=== PATIENT | female | born 1990 | race Caucasian/White ===

== ENCOUNTER 2021-12-22 19:11 | Emergency (ER) | payer MEDICAID, OTHER ==
[2021-12-22] MEDS ORDERED: Sodium Chloride 0.9% 10 ML Syringe FLUSH PRN (19:41)
[2021-12-22] MEDS ORDERED: Ketorolac 30 MG/ML SDV IVPUSH ONE (20:23)
[2021-12-22] MEDS ORDERED: diphenhydrAMINE 50 MG/ML SDV IVPUSH ONE (20:23)
[2021-12-22] MEDS ORDERED: Metoclopramide 10 MG/2 ML SDV IVPUSH ONE (20:23)
[2021-12-22] MEDS ORDERED: Orphenadrine 100 MG Tab.ER PO ONE (20:56)
== END 2021-12-22 21:55 ==
LOC: JD.ED 19:11
DX: R51.9 Headache, unspecified (principal); M43.6 Torticollis; R56.9 Unspecified convulsions; Z88.0 Allergy status to penicillin
CPT/HCPCS: 36415; 70450; 72125; 80053; 80306; 81001; 83735; 85025; 86140; 96374; 96375; 99285; A9270; J1200; J1885; J2765

== ENCOUNTER 2021-12-25 14:15 | Emergency (ER) | payer MEDICAID, OTHER ==
[2021-12-25] MEDS ORDERED: Sodium Chloride 0.9% 10 ML Syringe FLUSH PRN (14:44)
[2021-12-25] MEDS ORDERED: levETIRAcetam 1,000 MG in Sodium Chloride 0.9% 100 ML IV ONE (14:45)
[2021-12-25] MEDS ORDERED: Acetaminophen 325 MG Tab PO ONE (15:07)
[2021-12-25] MEDS ORDERED: Ondansetron 4 MG/2 ML SDV IVPUSH ONE (15:28)
== END 2021-12-25 16:20 ==
LOC: JD.ED 14:15
DX: R56.9 Unspecified convulsions (principal); Z88.0 Allergy status to penicillin; Z86.16 Personal history of COVID-19; Z87.891 Personal history of nicotine dependence
CPT/HCPCS: 36415; 80053; 83735; 85025; 96365; 96375; 99284; A9270; J1953; J2405

== ENCOUNTER 2024-07-10 00:03 | Emergency (ER) | payer MEDICAID, OTHER ==
[2024-07-10] MEDS: HYDROmorphone 1 MG/ML Syringe IVPUSH ONE (01:04)
[2024-07-10] MEDS: Metoclopramide 10 MG/2 ML SDV IVPUSH ONE (01:07)
[2024-07-10] MEDS: diphenhydrAMINE 50 MG/ML SDV IVPUSH ONE (01:08)
[2024-07-10] MEDS: Dextrose 5%-0.9% NaCl 1,000 ML IV SCH (01:11)
[2024-07-10 01:18] LABS: BASOPHILS ABSOLUTE AUTO 0.1 K/mm3 (0.0-0.2); BASOPHILS PERCENT AUTO 0.7 % (0.0-1.0); EOSINOPHILS ABSOLUTE AUTO 0.1 K/mm3 (0.0-0.4); EOSINOPHILS PERCENT AUTO 1.3 % (0.0-6.0); HEMATOCRIT 39.7 % (37.0-47.0); HEMOGLOBIN 13.3 gm/dl (12.0-16.0); LYMPHOCYTES ABSOLUTE AUTO 3.1 K/mm3 (1.0-4.8); LYMPHOCYTES PERCENT AUTO 45.4 % (24.0-44.0); MEAN CORPUSCULAR HEMOGLOBIN 29.1 pg (28.0-32.0); MEAN CORPUSCULAR HGB CONC 33.5 g/dl (32.0-36.0); MEAN CORPUSCULAR VOLUME 86.9 fl (83.0-99.0); MEAN PLATELET VOLUME 9.7 fl (9.4-12.3); MONOCYTES ABSOLUTE AUTO 0.6 K/mm3 (0.0-0.8); MONOCYTES PERCENT AUTO 8.4 % (0.0-8.0); NEUTROPHILS ABSOLUTE AUTO 3.1 K/mm3 (1.8-7.7); NEUTROPHILS PERCENT AUTO 44.2 % (41.0-71.0); PLATELET COUNT,PLT 314 K/mm3 (150-400); RED BLOOD CELL COUNT 4.57 M/mm3 (4.10-5.30); WHITE BLOOD CELL COUNT,WBC 6.92 K/mm3 (3.9-11.3)
[2024-07-10] MEDS: Iopamidol 612 MG/ML 100 ML Bottle IVPUSH ONE (01:20)
[2024-07-10 01:36] LABS: APPEARANCE,URINE CLEAR (Clear); BILIRUBIN,URINE NEGATIVE (Negative); COLOR,URINE YELLOW (Yellow); GLUCOSE,URINE NEGATIVE (Negative); KETONES,URINE NEGATIVE (Negative); LEUKOCYTE ESTERASE,URINE NEGATIVE (Negative); NITRITE,URINE NEGATIVE (Negative); OCCULT BLOOD,URINE 1+ (Negative); PH,URINE 6.5 (5.0-8.0); PROTEIN,URINE NEGATIVE (Negative); UROBILINOGEN,URINE 0.2 (0.2-1.0)
[2024-07-10 01:43] LABS: A/G RATIO 1.2 (1-2); ALBUMIN 3.7 g/dl (3.4-5.0); ANION GAP 11.3 (5-15); BILIRUBIN TOTAL 0.3 mg/dL (0.2-1.0); BUN/CREATININE RATIO 8.6 (14-18); C-REACTIVE PROTEIN 0.12 mg/dL (<0.30); CALCIUM 8.7 mg/dL (8.5-10.1); CREATININE 0.7 mg/dL (0.55-1.02); EST CRCL DRUG DOSING (CG) 102.33 mL/min; MAGNESIUM 1.9 mg/dL (1.8-2.4); POTASSIUM,K 3.3 mEq/L (3.5-5.1); PROTEIN TOTAL,TP 6.7 g/dl (6.4-8.2)
[2024-07-10 01:45] LABS: BACTERIA,URINE FEW /hpf (FEW); RBC,URINE 0-5 /hpf (0-5); WBC,URINE 0-5 /hpf (0-5)
[2024-07-10 01:46] LABS: MUCUS,URINE MODERATE /hpf (FEW)
[2024-07-10 01:51] LABS: LACTIC ACID 0.4 mmol/L (0.4-2.0)
[2024-07-10] MEDS: HYDROmorphone 0.5 MG/0.5 ML Syringe IVPUSH ONE (03:12)
[2024-07-10] MEDS: Ketorolac 30 MG/ML SDV IVPUSH ONE (03:12)
== END 2024-07-10 04:09 | disposition home or self-care (01) ==
LOC: JD.ED 00:03
DX: R10.84 Generalized abdominal pain (principal); R11.2 Nausea with vomiting, unspecified; F17.210 Nicotine dependence, cigarettes, uncomplicated; Z88.0 Allergy status to penicillin; Z91.040 Latex allergy status; Z79.899 Other long term (current) drug therapy; Z86.16 Personal history of COVID-19
CPT/HCPCS: 36415; 74177; 76830; 80053; 81001; 83605; 83690; 83735; 84703; 85025; 86140; 96361; 96374; 96375; 96376; 99284; J1171; J1200; J1885; J2765; J7042; Q9967

== ENCOUNTER 2024-09-17 17:52 | Emergency (ER) | payer MEDICAID ==
[2024-09-17] MEDS: Ondansetron 4 MG/2 ML SDV IVPUSH ONE (19:09)
[2024-09-17] MEDS: Sodium Chloride 0.9% 10 ML Syringe FLUSH PRN (19:09)
[2024-09-17] MEDS: Lactated Ringers 1,000 ML IV ONE (19:09)
[2024-09-17 19:22] LABS: APPEARANCE,URINE SLT CLOUDY (Clear); BILIRUBIN,URINE NEGATIVE (Negative); COLOR,URINE YELLOW (Yellow); GLUCOSE,URINE NEGATIVE (Negative); KETONES,URINE NEGATIVE (Negative); LEUKOCYTE ESTERASE,URINE NEGATIVE (Negative); NITRITE,URINE POSITIVE (Negative); OCCULT BLOOD,URINE NEGATIVE (Negative); PROTEIN,URINE NEGATIVE (Negative); UROBILINOGEN,URINE 0.2 (0.2-1.0)
[2024-09-17 19:28] LABS: BACTERIA,URINE MANY /hpf (FEW); MUCUS,URINE FEW /hpf (FEW); RBC,URINE 0-5 /hpf (0-5)
[2024-09-17 19:31] LABS: BASOPHILS PERCENT AUTO 0.5 % (0.0-1.0); EOSINOPHILS ABSOLUTE AUTO 0.1 K/mm3 (0.0-0.4); EOSINOPHILS PERCENT AUTO 1.8 % (0.0-6.0); HEMATOCRIT 39.2 % (37.0-47.0); HEMOGLOBIN 12.8 gm/dl (12.0-16.0); IMMATURE GRAN ABSOLUTE AUTO 0.01 K/mm3 (0.00-0.05); IMMATURE GRAN PERCENT AUTO 0.2 % (0.0-0.4); LYMPHOCYTES ABSOLUTE AUTO 2.5 K/mm3 (1.0-4.8); LYMPHOCYTES PERCENT AUTO 41.4 % (24.0-44.0); MEAN CORPUSCULAR HEMOGLOBIN 29.9 pg (28.0-32.0); MEAN CORPUSCULAR HGB CONC 32.7 g/dl (32.0-36.0); MEAN CORPUSCULAR VOLUME 91.6 fl (83.0-99.0); MONOCYTES ABSOLUTE AUTO 0.4 K/mm3 (0.0-0.8); MONOCYTES PERCENT AUTO 6.5 % (0.0-8.0); NEUTROPHILS PERCENT AUTO 49.6 % (41.0-71.0); PLATELET COUNT,PLT 224 K/mm3 (150-400); RED BLOOD CELL COUNT 4.28 M/mm3 (4.10-5.30); WHITE BLOOD CELL COUNT,WBC 6.11 K/mm3 (3.9-11.3)
[2024-09-17] MEDS: Dicyclomine 10 MG Cap PO ONE (19:50)
[2024-09-17 20:08] LABS: A/G RATIO 1.2 (1-2); ALBUMIN 3.2 g/dl (3.4-5.0); ANION GAP 11.1 (5-15); BILIRUBIN TOTAL 0.3 mg/dL (0.2-1.0); BUN/CREATININE RATIO 13.8 (14-18); CALCIUM 8.3 mg/dL (8.5-10.1); CREATININE 0.8 mg/dL (0.55-1.02); EST CRCL DRUG DOSING (CG) 85.11 mL/min; POTASSIUM,K 4.1 mEq/L (3.5-5.1); PROTEIN TOTAL,TP 5.9 g/dl (6.4-8.2)
[2024-09-17] MEDS: Ketorolac 30 MG/ML SDV IVPUSH ONE (20:31)
[2024-09-17] MEDS: Phenazopyridine 95 MG Tab PO SCH (20:36)
[2024-09-17] MEDS: Clindamycin HCl 150 MG Cap PO ONE (21:53)
[2024-09-17] MEDS: Sulfamethoxazole/Trimethoprim 800-160 MG Tab PO SCH (21:54)
[2024-09-18] MEDS ORDERED: Phenazopyridine 95 MG Tab PO SCH (09:00)
== END 2024-09-17 22:01 | disposition home or self-care (01) ==
LOC: JD.ED 17:52
DX: N30.00 Acute cystitis without hematuria (principal); K04.7 Periapical abscess without sinus; F17.210 Nicotine dependence, cigarettes, uncomplicated; Z79.899 Other long term (current) drug therapy; Z88.0 Allergy status to penicillin; Z91.040 Latex allergy status
CPT/HCPCS: 36415; 80053; 81001; 81025; 83605; 83690; 85025; 87086; 96374; 96375; 99284; A9270; J1885; J2405; J7120; 99283

== ENCOUNTER 2025-06-10 18:06 | Emergency (ER) | payer MEDICAID ==
[2025-06-10] MEDS: Ondansetron 4 MG/2 ML SDV IVPUSH ONE (18:49)
[2025-06-10 18:50] LABS: BASOPHILS ABSOLUTE AUTO 0.0 K/mm3 (0.0-0.2); BASOPHILS PERCENT AUTO 0.4 % (0.0-1.0); EOSINOPHILS ABSOLUTE AUTO 0.1 K/mm3 (0.0-0.4); EOSINOPHILS PERCENT AUTO 1.5 % (0.0-6.0); IMMATURE GRAN ABSOLUTE AUTO 0.04 K/mm3 (0.00-0.05); IMMATURE GRAN PERCENT AUTO 0.4 % (0.0-0.4); LYMPHOCYTES ABSOLUTE AUTO 3.5 K/mm3 (1.0-4.8); LYMPHOCYTES PERCENT AUTO 35.9 % (24.0-44.0); MEAN PLATELET VOLUME 10.2 fl (9.4-12.3); MONOCYTES ABSOLUTE AUTO 0.6 K/mm3 (0.0-0.8); MONOCYTES PERCENT AUTO 6.3 % (0.0-8.0); NEUTROPHILS ABSOLUTE AUTO 5.4 K/mm3 (1.8-7.7); NEUTROPHILS PERCENT AUTO 55.5 % (41.0-71.0); NRBC ABSOLUTE 0.00 (0.00-0.02); NRBC PERCENT 0.0 % (0.0-0.2); PLATELET COUNT,PLT 324 K/mm3 (150-400); RED BLOOD CELL COUNT 4.86 M/mm3 (4.10-5.30); WHITE BLOOD CELL COUNT,WBC 9.64 K/mm3 (3.9-11.3)
[2025-06-10 18:52] LABS: APPEARANCE,URINE CLEAR (Clear); GLUCOSE,URINE NEGATIVE (Negative); OCCULT BLOOD,URINE NEGATIVE (Negative)
[2025-06-10] MEDS: Sodium Chloride 0.9% 10 ML Syringe FLUSH ONE (18:55)
[2025-06-10] MEDS: Iopamidol 612 MG/ML 100 ML Bottle IVPUSH ONE (18:55)
[2025-06-10 19:00] LABS: EPITHELIAL CELLS,URINE 0-5 /hpf (0-5)
[2025-06-10 19:24] LABS: A/G RATIO 1.2 (1-2); ALANINE AMINOTRANSFERASE,ALT 22.0 U/L (14-59); ASPARTATE AMNIOTRANSFERASE,AST 11.0 U/L (15-37); BILIRUBIN TOTAL 0.1 mg/dL (0.2-1.0); BLOOD UREA NITROGEN,BUN 12.0 mg/dL (7-18); CARBON DIOXIDE,CO2 32.0 mEq/L (21-32); CHLORIDE,CL 101.0 mEq/L (98-107); CREATININE 0.7 mg/dL (0.55-1.02); EST CRCL DRUG DOSING (CG) 103.43 mL/min; ESTIMATED GFR 115.0 mL/min (>60); GLUCOSE RANDOM 119.0 mg/dL (70-99); POTASSIUM,K 3.7 mEq/L (3.5-5.1); PROTEIN TOTAL,TP 7.1 g/dl (6.4-8.2); SODIUM,NA 139.0 mEq/L (136-145)
[2025-06-10] MEDS: Ketorolac 30 MG/ML SDV IVPUSH ONE (22:00)
[2025-06-10] MEDS: Sodium Chloride 0.9% 10 ML Syringe FLUSH PRN (22:00)
== END 2025-06-10 23:03 | disposition home or self-care (01) ==
LOC: JD.ED 18:06
DX: K59.00 Constipation, unspecified (principal); R10.84 Generalized abdominal pain; F17.210 Nicotine dependence, cigarettes, uncomplicated; Z91.040 Latex allergy status; Z88.0 Allergy status to penicillin; Z79.899 Other long term (current) drug therapy
CPT/HCPCS: 36415; 74177; 80053; 81001; 83690; 84703; 85025; 96361; 96374; 96375; 99284; A9270; J1885; J2405; J7030; Q9967; J1171

== ENCOUNTER 2025-07-20 19:46 | Emergency (ER) | payer MEDICAID ==
[2025-07-20 20:15] LABS: BASOPHILS ABSOLUTE AUTO 0.1 K/mm3 (0.0-0.2); BASOPHILS PERCENT AUTO 0.6 % (0.0-1.0); EOSINOPHILS ABSOLUTE AUTO 0.2 K/mm3 (0.0-0.4); EOSINOPHILS PERCENT AUTO 2.2 % (0.0-6.0); IMMATURE GRAN ABSOLUTE AUTO 0.01 K/mm3 (0.00-0.05); IMMATURE GRAN PERCENT AUTO 0.1 % (0.0-0.4); LYMPHOCYTES ABSOLUTE AUTO 4.5 K/mm3 (1.0-4.8); LYMPHOCYTES PERCENT AUTO 53.3 % (24.0-44.0); MEAN PLATELET VOLUME 9.9 fl (9.4-12.3); MONOCYTES ABSOLUTE AUTO 0.6 K/mm3 (0.0-0.8); MONOCYTES PERCENT AUTO 6.9 % (0.0-8.0); NEUTROPHILS ABSOLUTE AUTO 3.1 K/mm3 (1.8-7.7); NEUTROPHILS PERCENT AUTO 36.9 % (41.0-71.0); NRBC ABSOLUTE 0.00 (0.00-0.02); NRBC PERCENT 0.0 % (0.0-0.2); PLATELET COUNT,PLT 373 K/mm3 (150-400); RED BLOOD CELL COUNT 4.65 M/mm3 (4.10-5.30); WHITE BLOOD CELL COUNT,WBC 8.37 K/mm3 (3.9-11.3)
[2025-07-20] MEDS ORDERED: Naloxone 0.4 MG/ML SDV IVPUSH PRN (20:25)
[2025-07-20 20:35] LABS: A/G RATIO 1.3 (1-2); ALANINE AMINOTRANSFERASE,ALT 22 U/L (14-59); ASPARTATE AMNIOTRANSFERASE,AST 17 U/L (15-37); BILIRUBIN TOTAL 0.3 mg/dL (0.2-1.0); BLOOD UREA NITROGEN,BUN 14 mg/dL (7-18); CARBON DIOXIDE,CO2 30 mEq/L (21-32); CHLORIDE,CL 103 mEq/L (98-107); CREATININE 0.7 mg/dL (0.55-1.02); EST CRCL DRUG DOSING (CG) 102.61 mL/min; ESTIMATED GFR 115 mL/min (>60); GLUCOSE RANDOM 103 mg/dL (70-99); POTASSIUM,K 3.9 mEq/L (3.5-5.1); PROTEIN TOTAL,TP 7.2 g/dl (6.4-8.2); SODIUM,NA 141 mEq/L (136-145)
[2025-07-20] MEDS ORDERED: Sodium Chloride 0.9% 10 ML Syringe FLUSH PRN (20:48)
[2025-07-20] MEDS: Iopamidol 612 MG/ML 100 ML Bottle IVPUSH ONE (21:04)
[2025-07-20] MEDS: Sodium Chloride 0.9% 10 ML Syringe FLUSH PRN (21:04)
[2025-07-20] MEDS: LORazepam 2 MG/ML SDV IVPUSH ONE (21:23)
== END 2025-07-20 22:30 | disposition home or self-care (01) ==
LOC: JD.ED 19:46
DX: K59.00 Constipation, unspecified (principal); Z88.0 Allergy status to penicillin; Z91.040 Latex allergy status
CPT/HCPCS: 36415; 74177; 80053; 83690; 84703; 85025; 86140; 96361; 96374; 96375; 99284; J2060; J7030; Q9967; J1171

== ENCOUNTER 2025-07-23 16:58 | Emergency (ER) | payer MEDICAID ==
[2025-07-23] MEDS: levETIRAcetam Soln 500 MG/5 ML Cup PO ONE (17:28)
== END 2025-07-23 17:40 | disposition home or self-care (01) ==
LOC: JD.ED 16:58
DX: K59.00 Constipation, unspecified (principal); G40.909 Epilepsy, unspecified, not intractable, without status epilepticus; Z76.0 Encounter for issue of repeat prescription; F41.9 Anxiety disorder, unspecified; Z88.0 Allergy status to penicillin; Z91.040 Latex allergy status
CPT/HCPCS: 99283; A9270; 99284